=== PATIENT | male | born 2000 | race Caucasian/White ===

== ENCOUNTER 2018-11-02 15:58 | Emergency (ER) | payer SELFPAY ==
[2018-11-02] MEDS ORDERED: KETOROLAC 30 MG/ML INJ ONE (17:25)
[2018-11-02] MEDS ORDERED: TETANUS & DIPHTHERIA TOX,ADULT 0.5 ML VIAL ONE (17:42)
--- NOTE | 2018-11-02 18:15 | ER ---
Nurse's Notes [facility] Name: Valerie Fylnn Age: 18 yrs Sex: Male : 2000 Arrival Date: 11/02/2018 Time: 16:00 Bed 12 Private MD: Diagnosis: Contusion of left middle finger with damage to nail Presentation: 11/02 16:42 Presenting complaint: Patient states: left middle finger pain. Pt states "I caught my aa5 finger with the door on Wednesday". Transition of care: patient was not received from another setting of care. Onset of symptoms was October 2018. Risk Assessment: Do you want to hurt yourself or someone else? Patient reports no desire to harm self or others. Initial Sepsis Screen: Does the patient meet any 2 criteria? No. Patient's initial sepsis screen is negative. Does the patient have a suspected source of infection? No. Patient's initial sepsis screen is negative. Care prior to arrival: None. 16:42 Acuity: GILLIAN 4 aa5 16:42 Method Of Arrival: Ambulatory aa5 Historical: - Allergies: 16:43 No Known Allergies; aa5 - PMHx: 16:43 None; aa5 - PSHx: 16:43 None; aa5 - Immunization history:: Last tetanus immunization: unknown. - Social history:: Smoking status: Patient uses tobacco products, chewing tobacco. - Ebola Screening: : No symptoms or risks identified at this time. Screenin:45 Abuse screen: Denies threats or abuse. Nutritional screening: No deficits noted. aa5 Tuberculosis screening: No symptoms or risk factors identified. Fall Risk None identified. Assessment: 16:45 General: Appears comfortable, Behavior is calm, cooperative. Pain: Complains of pain in aa5 distal phalanx of left middle finger Pain does not radiate. Quality of pain is described as aching, tender, throbbing, Is continuous. Neuro: Level of Consciousness is awake, alert, obeys commands, Oriented to person, place, time, situation. Cardiovascular: Patient's skin is warm and dry. Respiratory: Airway is patent Respiratory effort is even, unlabored, Respiratory pattern is regular, symmetrical. GI: No signs and/or symptoms were reported involving the gastrointestinal system. : No signs and/or symptoms were reported regarding the genitourinary system. EENT: No signs and/or symptoms were reported regarding the EENT system. Derm: Skin is pink, warm \\T\\ dry. Redness and swelling noted to distal phalanx of left middle finger. Musculoskeletal: Range of motion: intact in all extremities. 17:25 Reassessment: Patient is alert, oriented x 3, equal unlabored respirations, skin aa5 warm/dry/pink. Awaiting x-ray, pt notified of wait time . Vital Signs: 16:44 BP 132 / 83; Pulse 62; Resp 18 S; Temp 98.0(TE); Pulse Ox 100% on R/A; Weight 86.18 kg aa5 (R); Height 5 ft. 11 in. (180.34 cm) (R); Pain 8/10; 16:44 Body Mass Index 26.50 (86.18 kg, 180.34 cm) aa5 ED Course: 16:00 Patient arrived in ED. as 16:12 Susan Santos FNP-C is PHCP. snw 16:12 Lincoln Jerry MD is Attending Physician. snw 16:42 Arm band placed on. aa5 16:42 Patient has correct armband on for positive identification. aa5 16:43 Triage completed. aa5 16:44 Jayla Barnes, RN is Primary Nurse. aa5 17:57 Hand Left 3 View XRAY In Process Unspecified. 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 Exp: hb 06/30/2020. Lot #: [id number]. } Route: IM; Site: left deltoid; Outcome: 18:14 Discharge ordered by . snw 18:44 Patient left the ED. aa5 Signatures: Dispatcher [employer] EDMS Susan Santos FNP-C FINANCIAL OPERATIONS ANALYST-Robyn Short as Jayla Barnes, RN RN aa5 Loree Ibanez RN RN
--- NOTE | 2018-11-02 18:16 | EDPHYS ---
Physician Documentation [facility] Name: Valerie Flynn Age: 18 yrs Sex: Male : 2000 Arrival Date: 11/02/2018 Time: 16:00 Bed 12 Private MD: ED Physician Lincoln Jerry HPI: 11/02 17:24 This 18 yrs old Male presents to ER via Ambulatory with complaints of Finger snw Injury. 17:24 Trauma demographics: County: The injury occurred in [place] Location of Injury: The snw injury occurred outdoors. Mechanism of injury: Crush injury: from from a heavy object, not require extrication. Associated injuries: The patient sustained left middle fingernail, contusion, painful injury. Onset: The symptoms/episode began/occurred suddenly, 5 day(s) ago. The patient has not experienced similar symptoms in the past. It is unknown whether or not the patient has recently seen a physician. Historical: - Allergies: 16:43 No Known Allergies; aa5 - PMHx: 16:43 None; aa5 - PSHx: 16:43 None; aa5 - Immunization history:: Last tetanus immunization: unknown. - Social history:: Smoking status: Patient uses tobacco products, chewing tobacco. - Ebola Screening: : No symptoms or risks identified at this time. ROS: 17:24 Constitutional: Negative for fever, chills, and weight loss, Eyes: Negative for injury, snw pain, redness, and discharge, ENT: Negative for injury, pain, and discharge, Neck: Negative for injury, pain, and swelling, Cardiovascular: Negative for chest pain, palpitations, and edema, Respiratory: Negative for shortness of breath, cough, wheezing, and pleuritic chest pain, Abdomen/GI: Negative for abdominal pain, nausea, vomiting, diarrhea, and constipation, Back: Negative for injury and pain, : Negative for injury, bleeding, discharge, and swelling, Skin: Negative for injury, rash, and discoloration, Neuro: Negative for headache, weakness, numbness, tingling, and seizure, Psych: Negative for depression, anxiety, suicide ideation, homicidal ideation, and hallucinations. 17:24 MS/extremity: Positive for injury or acute deformity, pain, swelling, tenderness, of the left middle fingernail. Exam: 17:23 Constitutional: This is a well developed, well nourished patient who is awake, alert, snw and in no acute distress. Head/Face: Normocephalic, atraumatic. Eyes: Pupils equal round and reactive to light, extra-ocular motions intact. Lids and lashes normal. Conjunctiva and sclera are non-icteric and not injected. Cornea within normal limits. Periorbital areas with no swelling, redness, or edema. ENT: Nares patent. No nasal discharge, no septal abnormalities noted. Tympanic membranes are normal and external auditory canals are clear. Oropharynx with no redness, swelling, or masses, exudates, or evidence of obstruction, uvula midline. Mucous membranes moist. Neck: Trachea midline, no thyromegaly or masses palpated, and no cervical lymphadenopathy. Supple, full range of motion without nuchal rigidity, or vertebral point tenderness. No Meningismus. Chest/axilla: Normal chest wall appearance and motion. Nontender with no deformity. No lesions are appreciated. Cardiovascular: Regular rate and rhythm with a normal S1 and S2. No gallops, murmurs, or rubs. Normal PMI, no JVD. No pulse deficits. Respiratory: Lungs have equal breath sounds bilaterally, clear to auscultation and percussion. No rales, rhonchi or wheezes noted. No increased work of breathing, no retractions or nasal flaring. Abdomen/GI: Soft, non-tender, with normal bowel sounds. No distension or tympany. No guarding or rebound. No evidence of tenderness throughout. Back: No spinal tenderness. No costovertebral tenderness. Full range of motion. Skin: Warm, dry with normal turgor. Normal color with no rashes, no lesions, and no evidence of cellulitis. Neuro: Awake and alert, GCS 15, oriented to person, place, time, and situation. Cranial nerves II-XII grossly intact. Motor strength 5/5 in all extremities. Sensory grossly intact. Cerebellar exam normal. Normal gait. Psych: Awake, alert, with orientation to person, place and time. Behavior, mood, and affect are within normal limits. 17:23 Musculoskeletal/extremity: ROM: intact in all extremities, Circulation is intact in all extremities. the left middle fingernail Nails: Subungual hematoma, of the left middle fingernail. Vital Signs: 16:44 BP 132 / 83; Pulse 62; Resp 18 S; Temp 98.0(TE); Pulse Ox 100% on R/A; Weight 86.18 kg aa5 (R); Height 5 ft. 11 in. (180.34 cm) (R); Pain 8/10; 16:44 Body Mass Index 26.50 (86.18 kg, 180.34 cm) aa5 MDM: 17:10 Patient medically screened. snw 18:16 Data reviewed: vital signs, nurses notes. Data interpreted: Pulse oximetry: on room air snw is 100 %. Interpretation: normal. Counseling: I had a detailed discussion with the patient and/or guardian regarding: the historical points, exam findings, and any diagnostic results supporting the discharge/admit diagnosis, radiology results, the need for outpatient follow up, to return to the emergency department if symptoms worsen or persist or if there are any questions or concerns that arise at home. Special discussion: Based on the history and exam findings, there is no indication for further emergent testing or inpatient evaluation. I discussed with the patient/guardian the need to see the primary care provider for further evaluation of the symptoms. 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 Exp: 06/30/2020. Lot #: [id number]. } Route: IM; Site: left deltoid; Disposition: 11/02/18 18:14 Discharged to Home. Impression: Contusion of left middle finger with damage to nail. - Condition is Stable. - Discharge Instructions: Contusion, Cast or Splint Care, Adult, RICE for Routine Care of Injuries, VIS, Tetanus, Diphtheria (Td) - CDC, Crush Injury of the Hand. - Prescriptions for Keflex 500 mg Oral Capsule - take 1 capsule by ORAL route every 8 hours for 10 days; 30 capsule. Mobic 7.5 mg Oral Tablet - take 1 tablet by ORAL route once daily take with food; 20 tablet. - Medication Reconciliation Form, Thank You Letter, Antibiotic Education, Prescription Opioid Use, Work release form form. - Follow up: Private Physician; When: 2 - 3 days; Reason: Recheck today's complaints, Continuance of care, Re-evaluation by your physician. Follow up: Emergency Department; When: As needed; Reason: Worsening of condition. Signatures: Dispatcher [employer] EDMS Susan Santos, AUTOMOTIVE DESIGN LAYOUT DRAFTER-C AUTOMOTIVE DESIGN LAYOUT DRAFTER-Csnw Jayla Barnes RN RN aa5 Loree Ibanez RN RN Corrections: (The following items were deleted from the chart) 18:44 18:14 11/02/2018 18:14 Discharged to Home. Impression: Contusion of left middle finger aa5 with damage to nail. Condition is Stable. Forms are Medication Reconciliation Form, Thank You Letter, Antibiotic Education, Prescription Opioid Use. Follow up: Private Physician; When: 2 - 3 days; Reason: Recheck today's complaints, Continuance of care, Re-evaluation by your physician. Follow up: Emergency Department; When: As needed; Reason: Worsening of condition. snw
--- NOTE | 2018-11-02 18:21 | RAD REPORT ---
EXAM DESCRIPTION: RAD -Hand Left 3 View - 11/02/2018 5:56 pm CLINICAL HISTORY: Left hand pain status post injury FINDINGS: No acute fracture or dislocation is seen.
== END 2018-11-02 18:44 | disposition home or self-care (01) ==
LOC: ER 15:58
DX: S60.132A Contusion of left middle finger with damage to nail, initial encounter (principal); W23.0XXA Caught, crushed, jammed, or pinched between moving objects, initial encounter; Y93.89 Activity, other specified; Y92.89 Other specified places as the place of occurrence of the external cause; F17.220 Nicotine dependence, chewing tobacco, uncomplicated; Z23 Encounter for immunization
CPT/HCPCS: 90714

== ENCOUNTER 2018-11-04 13:16 | Emergency (ER) | payer SELFPAY ==
[2018-11-04] MEDS ORDERED: LIDOCAINE 1% MPF 5 ML VIAL ONE (15:22)
[2018-11-04] MEDS ORDERED: BUPIVACAINE 0.5% PF 10 ML VIAL ONE (15:22)
--- NOTE | 2018-11-04 16:06 | ER ---
Nurse's Notes [facility] Name: Valerie Flynn Age: 18 yrs Sex: Male : 2000 Arrival Date: 11/04/2018 Time: 13:17 Bed 14 Private MD: Diagnosis: Cutaneous abscess of left hand-left middle finger;Cellulitis of left finger-middle Presentation: 11/04 13:23 Presenting complaint: Patient states: I have infection in the end of my finger and I la1 was put on abx here a few days ago but it is getting worse. Transition of care: patient was not received from another setting of care. Onset of symptoms was November 04, 2018. Risk Assessment: Do you want to hurt yourself or someone else? Patient reports no desire to harm self or others. Initial Sepsis Screen: Does the patient meet any 2 criteria? No. Patient's initial sepsis screen is negative. Does the patient have a suspected source of infection? No. Patient's initial sepsis screen is negative. Care prior to arrival: None. 13:23 Method Of Arrival: Ambulatory la1 13:23 Acuity: GILLIAN 3 la1 Historical: - Allergies: 13:24 No Known Allergies; la1 - PMHx: 13:24 None; la1 - Immunization history:: Adult Immunizations up to date. - Social history:: Smoking status: Patient/guardian denies using tobacco. - Ebola Screening: : No symptoms or risks identified at this time. Screenin:59 Abuse screen: Denies threats or abuse. Denies injuries from another. Nutritional rv screening: No deficits noted. Tuberculosis screening: No symptoms or risk factors identified. Fall Risk None identified. Assessment: 13:57 General: Appears in no apparent distress. comfortable, Behavior is calm, cooperative. rv Pain: Complains of pain in left middle fingernail. Neuro: Level of Consciousness is awake, alert, obeys commands, Oriented to person, place, time, situation. Cardiovascular: Patient's skin is warm and dry. Respiratory: Airway is patent. GI: No signs and/or symptoms were reported involving the gastrointestinal system. : No signs and/or symptoms were reported regarding the genitourinary system. EENT: No signs and/or symptoms were reported regarding the EENT system. Derm: Skin is healthy with good turgor. Musculoskeletal: Swelling present in left middle fingernail Reports pain in left middle fingernail. Vital Signs: 13:24 BP 127 / 83; Pulse 75; Resp 16; Temp 98.6; Pulse Ox 98% on R/A; Weight 89.81 kg; Height la1 5 ft. 4 in. (162.56 cm); 15:46 BP 128 / 93; Pulse 65; Resp 16; Pulse Ox 100% on R/A; rv 16:56 BP 121 / 86; Pulse 74; Resp 16; Temp 98.4; Pulse Ox 100% ; rv 13:24 Body Mass Index 33.99 (89.81 kg, 162.56 cm) la1 ED Course: 13:17 Patient arrived in ED. as 13:24 Triage completed. la1 13:24 Arm band placed on left wrist. la1 13:47 Dilan Geller PA is PHCP. cp 13:47 Mike Hill MD is Attending Physician. cp 13:49 Dannie Covarrubias RN is Primary Nurse. rv 14:00 Patient has correct armband on for positive identification. Bed in low position. Call rv light in reach. Side rails up X 1. Pulse ox on. NIBP on. 15:50 Assist provider with I \T\ D: of an abscess on left middle finger, left hand Set up I\T\D rv tray. Performed by Dilan PRADO Dressing with 4X4s, tape Patient tolerated well. Patient did not have IV access during this emergency room visit. 16:02 Familia Muñoz MD is Referral Physician. cp Administered Medications: 16:55 Drug: Doxycycline 100 mg Route: PO; rv 16:56 Follow up: Response: Medication administered at discharge. rv 16:56 Drug: Bactrim (160 mg-800 mg (DS) 1 tablet Route: PO; rv 16:56 Follow up: Response: Medication administered at discharge. rv Outcome: 16:05 Discharge ordered by . cp 16:56 Discharged to home ambulatory. rv 16:56 Condition: improved 16:56 Discharge instructions given to patient, Instructed on discharge instructions, follow up and referral plans. medication usage, wound care, Demonstrated understanding of instructions, follow-up care, medications, wound care, splint care, Prescriptions given X 4. 16:57 Patient left the ED. rv Signatures: Robyn Holden Lee, RN RN la1 Dilan Geller PA PA Dannie Dudley, RN RN rv
--- NOTE | 2018-11-04 16:06 | EDPHYS ---
Physician Documentation [facility] Name: Valerie Flynn Age: 18 yrs Sex: Male : 2000 Arrival Date: 11/04/2018 Time: 13:17 Bed 14 Private MD: ED Physician Mike Hill HPI: 11/04 13:54 This 18 yrs old Male presents to ER via Ambulatory with complaints of Finger cp Swelling/Infection. 13:55 The patient or guardian reports pain, swelling, tenderness. cp 13:55 The complaints affect the distal phalanx left middle finger. cp 13:55 Context: resulted from crush injury 7 days ago. cp 13:55 Patient seen in ED on 11-02-2018 for injury, 5 days after occurrence, was prescribed cp oral keflex for infection. Reports worsening swelling and pain. Historical: - Allergies: 13:24 No Known Allergies; la1 - PMHx: 13:24 None; la1 - Immunization history:: Adult Immunizations up to date. - Social history:: Smoking status: Patient/guardian denies using tobacco. - Ebola Screening: : No symptoms or risks identified at this time. ROS: 14:00 Constitutional: Negative for body aches, chills, fever, poor PO intake. cp 14:00 MS/extremity: Positive for pain, swelling, tenderness, warmth, of the distal phalanx cp left middle finger. 14:00 All other systems are negative. Exam: 14:05 Constitutional: The patient appears in no acute distress, alert, awake, non-toxic, well cp developed, well nourished. 14:05 Head/Face: Normocephalic, atraumatic. cp 14:05 Musculoskeletal/extremity: Extremities: grossly normal except: noted in the left middle finger distal phalanx: swelling, tenderness, There is no evidence of decreased ROM, Perfusion: the extremity is normally perfused throughout, Sensation intact. no significant pain or swelling extending along flexor surface of left middle finger. 14:05 Skin: abscess, that is small, with drainage, that is purulent, with surrounding cellulitis, noted to proximal nailbed of left middle finger. Vital Signs: 13:24 BP 127 / 83; Pulse 75; Resp 16; Temp 98.6; Pulse Ox 98% on R/A; Weight 89.81 kg; Height la1 5 ft. 4 in. (162.56 cm); 15:46 BP 128 / 93; Pulse 65; Resp 16; Pulse Ox 100% on R/A; rv 16:56 BP 121 / 86; Pulse 74; Resp 16; Temp 98.4; Pulse Ox 100% ; rv 13:24 Body Mass Index 33.99 (89.81 kg, 162.56 cm) la1 Procedures: 16:15 I \T\ D: Incision and drainage was performed for an abscess of the proximal nailbed left cp middle finger Prepped with Betadine, Anesthetized with digital block using 6 ccs of 1% lidocaine and 0.5% marcaine mixed equally. Incised with 18 gauge needle. Drained small amount purulent fluid. Dressing: sterile 4x4 gauze, the patient tolerated the procedure well. 16:15 Splinting: Splint applied to left middle finger finger splint applied. cp MDM: 13:50 Patient medically screened. cp 16:00 Differential diagnosis: tenosynovitis, cellulitis, abscess, felon, paronychia. cp 16:05 Data reviewed: vital signs, nurses notes, I have discussed the patient's cp presentation/case with the attending Emergency Department Physician; and as a result, I will discharge patient. 16:05 Counseling: I had a detailed discussion with the patient and/or guardian regarding: the cp historical points, exam findings, and any diagnostic results supporting the discharge/admit diagnosis, the need for outpatient follow up, a hand specialist, to return to the emergency department if symptoms worsen or persist or if there are any questions or concerns that arise at home. Response to treatment: the patient's symptoms have markedly improved after treatment, and as a result, I will discharge patient. 11/04 16:01 Order name: Wound Culture cp 11/04 16:00 Order name: Splint - Finger; Complete Time: 16:56 cp 11/04 16:00 Order name: Wound dressing; Complete Time: 16:56 cp Administered Medications: 16:55 Drug: Doxycycline 100 mg Route: PO; rv 16:56 Follow up: Response: Medication administered at discharge. rv 16:56 Drug: Bactrim (160 mg-800 mg (DS) 1 tablet Route: PO; rv 16:56 Follow up: Response: Medication administered at discharge. rv Disposition: 17:00 Chart complete. cp 18:13 Co-signature as Attending Physician, Mike Hill MD. rn Disposition: 11/04/18 16:05 Discharged to Home. Impression: Cutaneous abscess of left hand - left middle finger, Cellulitis of left finger - middle. - Condition is Stable. - Discharge Instructions: Skin Abscess, Cellulitis, Adult. - Prescriptions for Ibuprofen 800 mg Oral Tablet - take 1 tablet by ORAL route every 8 hours As needed take with food; 30 tablet. Tramadol 50 mg Oral Tablet - take 1 tablet by ORAL route every 8 hours as needed; 15 tablet. Bactrim DS 800- 160 mg Oral Tablet - take 1 tablet by ORAL route every 12 hours for 10 days; 20 tablet. Doxycycline Monohydrate 100 mg Oral Tablet - take 1 tablet by ORAL route every 12 hours for 10 days; 20 tablet. - Medication Reconciliation Form, Thank You Letter, Antibiotic Education, Prescription Opioid Use form. - Follow up: Familia Muñoz MD; When: 2 - 3 days; Reason: Recheck today's complaints. - Problem is new. - Symptoms have improved. Signatures: Dispatcher [employer] EDMS Mike Hill MD MD rn Attema, Lee, RN RN la1 Dilan Geller PA PA Dannie Dudley RN RN rv Corrections: (The following items were deleted from the chart) 16:57 16:05 11/04/2018 16:05 Discharged to Home. Impression: Cutaneous abscess of left hand - rv left middle finger; Cellulitis of left finger - middle. Condition is Stable. Forms are Medication Reconciliation Form, Thank You Letter, Antibiotic Education, Prescription Opioid Use. Follow up: Familia Muñoz; When: 2 - 3 days; Reason: Recheck today's complaints. Problem is new. Symptoms have improved. cp
[2018-11-04] MEDS ORDERED: DOXYCYCLINE 100 MG CAP PO ONE (16:16)
[2018-11-04] MEDS ORDERED: SMZ./TMP. 800/160 MG TABLET ONE (17:03)
== END 2018-11-04 16:57 | disposition home or self-care (01) ==
LOC: ER 13:16
PROC: 0H9GXZZ Drainage of Left Hand Skin, External Approach (ICD-10-PCS; principal; 2018-11-04)
DX: L02.512 Cutaneous abscess of left hand (principal); L03.012 Cellulitis of left finger
CPT/HCPCS: 87070; 87077; 87186; 87205; 99284